=== PATIENT | male | born 1990 ===

== ENCOUNTER 2017-12-06 18:57 | Inpatient (IN) | payer OTHER, MEDICAID ==
--- NOTE | 2017-12-06 19:10 | C.PDOC ---
History Of Present Illness presents to the ED complaining of feeling depressed due to the anniversary of his grandfather an daughter's . 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 Time Seen by Provider: 12/06/17 19:10 Chief Complaint (Nursing): Psychiatric Evaluation History Per: Patient History/Exam Limitations: no limitations Onset/Duration Of Symptoms: Hrs Current Symptoms Are (Timing): Still Present Suicide/Self Injury Attempted (Context): Other (20 Ambien pills (10 mg)) Modifying Factor(s): Other Severity: Moderate Pain Scale Rating Of: 4 Associated Symptoms: Depression Involuntary Hold By: None Recent travel outside of the [place]: No Additional History Per: EMS Past Medical History Reviewed: Historical Data, Nursing Documentation, Vital Signs Vital Signs: Last Vital Signs Temp 98 F 12/06/17 18:58 Pulse 82 12/06/17 18:58 Resp 18 12/06/17 18:58 BP 133/82 12/06/17 18:58 Pulse Ox 98 12/06/17 18:58 - Medical History PMH: No Chronic Diseases Surgical History: No Surg Hx Family History: States: Unknown Family Hx - Social History Hx Alcohol Use: Yes Hx Substance Use: No Review Of Systems Constitutional: Negative for: Fever, Chills Eyes: Negative for: Vision Change ENT: Negative for: Throat Pain Cardiovascular: Negative for: Chest Pain Respiratory: Negative for: Shortness of Breath Gastrointestinal: Negative for: Nausea, Vomiting, Abdominal Pain Genitourinary: Negative for: Dysuria Musculoskeletal: Negative for: Back Pain Skin: Negative for: Rash Neurological: Negative for: Weakness, Confusion Psych: Positive for: Depression Physical Exam - Physical Exam Appears: Non-toxic, No Acute Distress Skin: Warm, Dry Head: Normacephalic Eye(s): bilateral: Normal Inspection, PERRL, EOMI Oral Mucosa: Moist Neck: Trachea Midline, Supple Chest: Symmetrical Cardiovascular: Rhythm Regular Respiratory: No Rales, No Rhonchi, No Wheezing Gastrointestinal/Abdominal: Soft, No Tenderness, No Distention Back: Normal Inspection Extremity: Normal ROM Extremity: Bilateral: Atraumatic Pulses: Left Dorsalis Pedis: Normal, Right Dorsalis Pedis: Normal Neurological/Psych: Oriented x3 Gait: Steady ED Course And Treatment - Laboratory Results Result Diagrams: 12/06/17 19:29 12/06/17 19:29 ECG: Interpreted By Me, Viewed By Me ECG Rhythm: Sinus Rhythm (87), Nonspecific Changes O2 Sat by Pulse Oximetry: 98 (RA) Pulse Ox Interpretation: Normal - Radiology CXR: Interpreted by Me, Viewed By Me CXR Interpretation: No: Infiltrates, Fracture, Pnemothorax Progress Note: 1999--Poison control called and advised observation. Disposition Discussed With : Carrillo Carson Comment: accepteed the pt on his service and took over the care at 9:57 PM Doctor Will See Patient In The: Hospital Counseled Patient/Family Regarding: Studies Performed, Diagnosis - Disposition Disposition: HOSPITALIZED Disposition Time: 19:10 Condition: FAIR Forms: [employer] (Romansh) - POA Present On Arrival: None - Clinical Impression Clinical Impression: Overdose, Major depression - Scribe Statement The provider has reviewed the documentation as recorded by the Scribe (Josi Pepper) Provider Attestation: All medical record entries made by the Scribe were at my direction and personally dictated by me. I have reviewed the chart and agree that the record accurately reflects my personal performance of the history, physical exam, medical decision making, and the department course for this patient. I have also personally directed, reviewed, and agree with the discharge instructions and disposition. Decision To Admit - Pt Status Changed To: Hospital Disposition Of: Observation - . Bed Request Type: Telemetry Admitting Physician: Carrillo Carson Patient Diagnosis: Overdose, Major depression
[2017-12-06 19:29] LABS: SQUAMOUS EPITHIAL < 1 /hpf (0-5); URINE BILIRUBIN NEGATIVE (NEGATIVE); URINE BLOOD NEGATIVE (NEGATIVE); URINE CLARITY Clear (Clear); URINE COLOR Yellow (YELLOW); URINE GLUCOSE (UA) NORMAL (Normal); URINE LEUKOCYTE ESTERASE NEG Leu/uL (Negative); URINE PROTEIN NEGATIVE (NEGATIVE); URINE UROBILINOGEN NORMAL mg/dL (0.2-1.0)
[2017-12-06 19:32] LABS: BASO % 0.4 % (0.0-2.0); EOS # 0.5 K/uL (0.0-0.7); EOS % 5.5 % (0.0-4.0); HEMOGLOBIN 16.9 g/dL (12.0-18.0); LYMPH % 21.7 % (20.0-40.0); MEAN CELL VOLUME 91.1 fL (80.0-94.0); MEAN CORPUSCULAR HEMOGLOBIN 31.9 pg (27.0-31.0); MEAN CORPUSCULAR HGB CONC 34.9 g/dL (33.0-37.0); MEAN PLATELET VOLUME 10.2 fL (7.2-11.7); MONO # 0.7 K/uL (0.0-0.8); MONO % 7.4 % (0.0-10.0); NEUT # 5.8 K/uL (1.8-7.0); RBC 5.32 Mil/uL (4.40-5.90); RED CELL DISTRIBUTION WIDTH 12.7 % (11.5-14.5)
[2017-12-06 19:45] LABS: ALB/GLOB RATIO 1.4 (1.0-2.1); ALBUMIN 4.5 g/dL (3.5-5.0); ALT/SGPT 49 U/L (21-72); AST/SGOT 33 U/L (17-59); BLOOD UREA NITROGEN 16 mg/dL (9-20); GFR NON-AFRICAN AMERICAN > 60
[2017-12-06 19:48] LABS: CALCIUM 9.6 mg/dl (8.6-10.4)
[2017-12-06 19:55] LABS: ACETAMINOPHEN < 10.0 ug/mL (10.0-30.0); SALICYLATE < 1.0 [, mg/dL 1]
[2017-12-06 20:07] LABS: BARBITURATES, UR NEGATIVE (NEGATIVE); BENZODIAZEPINES, UR NEGATIVE (NEGATIVE); OPIATES, UR NEGATIVE (NEGATIVE); PHENCYCLIDINE, UR NEGATIVE (NEGATIVE)
--- NOTE | 2017-12-06 21:31 | RAD ---
Date of service: 12/06/2017 HISTORY: Overdose COMPARISON: No prior. FINDINGS: LUNGS: Mild venous congestion. Mild bibasilar airspace opacities. Small nodular density at the left lung base may represent prominent vessel on end and or small nodule and or granuloma. Correlation with lateral view may be helpful. Interval follow-up study may be helpful in a 3 month interval. PLEURA: No significant pleural effusion identified, no pneumothorax apparent. CARDIOVASCULAR: No atherosclerotic calcification present Normal. OSSEOUS STRUCTURES: No significant abnormalities. VISUALIZED UPPER ABDOMEN: Normal. OTHER FINDINGS: None. IMPRESSION: Mild venous congestion. Mild bibasilar airspace opacities. Small nodular density at the left lung base may represent prominent vessel on end and or small nodule and or granuloma. Correlation with lateral view may be helpful. Interval follow-up study may be helpful in a 3 month interval.
[2017-12-06] MEDS: Dextrose 5%/0.45% NS 1,000 ML IV SCH (22:56)
[2017-12-06] MEDS ORDERED: Dextrose 5%/0.45% NS 1,000 ML IV ONE (22:58)
[2017-12-07] MEDS: Dextrose 5%/0.45% NS 1,000 ML IV SCH ×2 (09:45→17:21)
[2017-12-07 17:30] LABS: HEMOGLOBIN 16.4 g/dL (12.0-18.0); MEAN CELL VOLUME 92.1 fL (80.0-94.0); MEAN CORPUSCULAR HEMOGLOBIN 32.4 pg (27.0-31.0); MEAN CORPUSCULAR HGB CONC 35.2 g/dL (33.0-37.0); MEAN PLATELET VOLUME 10.7 fL (7.2-11.7); RBC 5.07 Mil/uL (4.40-5.90); RED CELL DISTRIBUTION WIDTH 12.8 % (11.5-14.5)
[2017-12-07 17:41] LABS: ALB/GLOB RATIO 1.4 (1.0-2.1); ALBUMIN 4.1 g/dL (3.5-5.0); ALT/SGPT 52 U/L (21-72); AST/SGOT 36 U/L (17-59); BLOOD UREA NITROGEN 16 mg/dL (9-20); CALCIUM 9.5 mg/dl (8.6-10.4); GFR NON-AFRICAN AMERICAN > 60
--- NOTE | 2017-12-07 21:42 | CP.PCM.HP ---
Present on Admission - Present on Admission Any Indicators Present on Admission: No Past Patient History - Past Social History Smoking Status: Never Smoked - CARDIAC Hx Cardiac Disorders: No Hx Hypertension: No - PULMONARY Hx Tuberculosis: No - NEUROLOGICAL HX Cerebrovascular Accident: No Hx Seizures: No - HEMATOLOGICAL/ONCOLOGICAL Hx Cancer: No Hx Human Immunodeficiency Virus (HIV): No - GENITOURINARY/GYNECOLOGICAL Hx Sexually Transmitted Disorders: No - PSYCHIATRIC Hx Substance Use: No - SURGICAL HISTORY Hx Surgeries: No - ANESTHESIA Hx Anesthesia: No Meds Home Medications: Home Medication List Medication Instructions Recorded Confirmed Type RX: QUEtiapine [Seroquel] 100 mg PO HS #30 tab 12/15/17 Rx RX: Venlafaxine [Effexor XR] 150 mg PO DAILY #30 cer 12/15/17 Rx Allergies/Adverse Reactions: Allergies Allergy/AdvReac Type Severity Reaction Status Date / Time No Known Allergies Allergy Unverified 12/06/17 19:05 Results - Vital Signs Recent Vital Signs: Last Vital Signs Temp 98 F 12/07/17 14:00 Pulse 61 12/07/17 15:30 Resp 20 12/07/17 14:00 BP 111/67 12/07/17 14:00 Pulse Ox 96 12/07/17 14:00 - Labs Result Diagrams: 12/07/17 17:22 12/07/17 17:22 Labs: Laboratory Results - last 24 hr 12/07/17 12/07/17 17:22 17:22 WBC 7.0 RBC 5.07 Hgb 16.4 Hct 46.7 MCV 92.1 MCH 32.4 H MCHC 35.2 RDW 12.8 Plt Count 173 MPV 10.7 Sodium 143 Potassium 3.9 Chloride 106 Carbon Dioxide 26 Anion Gap 15 BUN 16 Creatinine 0.9 Est GFR ( Amer) > 60 Est GFR (Non-Af Amer) > 60 Random Glucose 87 Calcium 9.5 Total Bilirubin 1.8 H AST 36 ALT 52 Alkaline Phosphatase 58 Total Protein 7.0 Albumin 4.1 Globulin 2.9 Albumin/Globulin Ratio 1.4
[2017-12-08] MEDS: Dextrose 5%/0.45% NS 1,000 ML IV SCH ×2 (09:28→22:02)
--- NOTE | 2017-12-08 23:55 | CP.PCM.PN ---
Subjective - Date & Time of Evaluation Date of Evaluation: 12/08/17 Time of Evaluation: 09:10 - Subjective Subjective: dictated Objective - Vital Signs/Intake and Output Vital Signs (last 24 hours): Temp Pulse Resp BP Pulse Ox 97.5 F L 55 L 20 107/65 97 12/08/17 15:00 12/08/17 16:00 12/08/17 15:00 12/08/17 15:00 12/08/17 15:00 Intake and Output: 12/08/17 12/09/17 18:59 06:59 Intake Total 1250 Balance 1250 - Medications Medications: Current Medications Dextrose/Sodium Chloride (Dextrose 5%/0.45% Ns 1000 Ml) 1,000 mls @ 100 mls/hr IV .Q10H ANNETTE Last Admin: 12/08/17 22:02 Dose: 100 mls/hr - Labs Labs: 12/07/17 17:22 12/07/17 17:22
--- NOTE | 2017-12-09 07:49 | PN ---
DATE: 12/08/2017 SUBJECTIVE: The patient, Lawrence Hart, feels better. He is more alert. Afebrile. No nausea, vomiting. He is on one-to-one watch. PHYSICAL EXAMINATION: VITAL SIGNS: Blood pressure 110/65, pulse 70, respiratory rate 20, temperature 97.5. LUNGS: Clear. CVS: S1, S2 regular. ABDOMEN: Soft. ASSESSMENT: 1. Drug overdose. 2. Suicidal attempt. PLAN: Continue current medication. Monitor the patient. Carrillo Carson MD
[2017-12-09] MEDS: Dextrose 5%/0.45% NS 1,000 ML IV SCH (10:28)
--- NOTE | 2017-12-09 11:13 | PCM.PSYCH ---
Initial Psychiatric Evaluation - Initial Psychiatric Evaluation Type of Admission: Voluntary Legal Status: Capacity Chief Complaint (in patient's own words): I just wanted to sleep.' History of Present Illness and Precipitating Events: Pt is a 27 years old HM, with previous psychiatric history of major depression was admitted to the medical floor as pt overdosed on 10 pills of ambien. Psychiatry was consulted today. Pt reports past history of more than 1 inpatient psychiatric hospitalizations, he was last discharged 4 years ago. He reports non compliance with the follow up treatments. Patient reports that he overdosed following an argument with his regarding marital issues that they have been having. The patient does not remember what type of pills he took but states that he took about 10 pills after they finished arguing and he did not know what he was doing at the time. Pt at time of contact appeared somewhat delusional and paranoid. He was smiling inappropriately. Pt remained internally preoccupied. Patient reports of depressed mood, at times feelings of hopelessness and helplessness, poor sleep and poor appetite. He denies any auditory or visual hallucinations or any psychotic symptoms. Past psychiatic history: Pt reports h/o psychiatric hospitalization 4yr ago, for suicide attempt due to hearing voices telling him to kill himself after his unborn daughter's Social history: Patient lives with his who is his immediate contact (phone#: [phone]) and not working. They have no children. Patient states he used to use marijuana but stopped 2 years ago Past medical: No previous medical history Allergies: no known allergies Current Medications: Active Medications Generic Name Dose Route Start Last Admin Trade Name Freq PRN Reason Stop Dose Admin Dextrose/Sodium Chloride 1,000 mls @ 100 mls/hr 12/06/17 22:00 12/09/17 10:28 Dextrose 5%/0.45% Ns 1000 Ml IV 100 mls/hr .Q10H ANNETTE Administration Past Psychiatric History - Past Psychiatric History Previous Treatment History: Inpatient Pertinent Medical Hx (Current Medical&Sleep Prob, Allergies): Allergies Allergy/AdvReac Type Severity Reaction Status Date / Time No Known Allergies Allergy Unverified 12/06/17 19:05 No Known Home Med 12/06/17 Review of Systems - Review of Systems All systems: reviewed and no additional remarkable complaints except - Psychiatric Psychiatric: Anxiety, Irritability, Paranoia, Suicidal Ideation Mental Status Examination - Personal Presentation Personal Presentation: Looks stated age - Affect Affect: Constricted, Depressed - Motor Activity Motor Activity: Calm - Reliability in Providing Information Reliability in Providing Information: Fair - Speech Speech: Organized - Mood Mood: Depressed, Anxious - Formal Thought Process Formal Thought Process: Delusions, Paranoia, Loosening of associations - Obsessions/Compulsions Obsessions: No Compulsions: No - Cognitive Functions Orientation: Person, Place, Situation, Time Sensorium: Alert Attention/Concentration: Attentive Abstract Thinking: [place] Estimate of Intelligence: Below average Judgement: Imparied, as evidence by: Poor judgement, Imparied, as evidence by: Lack of insight into illness - Risk Risk: Suicidal, Diminished functioning - Limitations Limitations: Living alone DSM 5 DX - DSM 5 DSM 5 Diagnosis: Major depressive disorder recurrent severe with psychotic features R/O Schizoaffective disorder depressive type - Recommended/Plan of Treatment Treatment Recommendations and Plan of Treatment: Major depressive disorder recurrent severe with psychotic features R/O Schizoaffective disorder depressive type -psychotherapy -supportive therapy, group therapy, individual therapy -Atarax 25 mg PO Q6 prn -Trazodone 100 mg PO QHS prn Pt to transfer to the psych after medical clearance.
--- NOTE | 2017-12-09 14:08 | CP.PCM.PN ---
Subjective - Date & Time of Evaluation Date of Evaluation: 12/09/17 Time of Evaluation: 14:05 - Subjective Subjective: PT SEEN BY PSYCH, DR. JIMENEZ, THIS AFTERNOON AND HAS BEEN ACCEPTED TO GO TO PSYCH FOR ADMISSION UNDER DR. JIMENEZ. PER DR. DURAN PT IS MEDICALLY STABLE AND CLEARED FOR TRANSFER TO PSYCH FLOOR FOR FURTHER TREATMENT AND ADMISSION. PRIMAR Y RN LORENZO AWARE AND WILL ENSURE PT IS TRANSFERRED. NO FURTHER ORDERS. Objective - Vital Signs/Intake and Output Vital Signs (last 24 hours): Temp Pulse Resp BP Pulse Ox 98.1 F 59 L 20 104/65 97 12/09/17 13:10 12/09/17 13:10 12/09/17 13:10 12/09/17 13:10 12/09/17 07:00 Intake and Output: 12/09/17 12/09/17 06:59 18:59 Intake Total 2019 Balance 2019 - Medications Medications: Current Medications Dextrose/Sodium Chloride (Dextrose 5%/0.45% Ns 1000 Ml) 1,000 mls @ 100 mls/hr IV .Q10H ANNETTE Last Admin: 12/09/17 10:28 Dose: 100 mls/hr - Labs Labs: 12/07/17 17:22 12/07/17 17:22
--- NOTE | 2017-12-09 17:33 | PCM.BM ---
<Janel Dian - Last Filed: 12/09/17 17:30> Treatment Plan Problems - Problems identified on initial assessmt Depression Date Initiated: 12/09/17 Time Initiated: 17:30 Assessment reference: NA Status: Active Suicidal Ideation Date Initiated: 12/09/17 Time Initiated: 17:30 Assessment reference: NA Status: Monitor Treatment assets and liabiliti Patient Assests: cooperative, ADL independent, physically healthy, cognitively intact Patient Liabilities: poor support system - Milieu Protocol Maintain good personal hygiene: daily Encourage regular showers, daily Remind patient to perform daily oral care, daily Assist patient to perform ADL's Conduct patient checks and document Observation sheet: Q15 minutes Maintain personal safety: every shift Educate patient to report safety concerns to staff, every shift Monitor environment for contraband/sharps Medication safety: Monitor for expected outcome, potential side effects: every shift, Assess barriers to learning: every shift, Assess readiness for medication education: every shift <Yemi Pedro - Last Filed: 12/10/17 11:39> - Diagnosis (1) Major depressive disorder with psychotic features Status: Acute Interventions: 12/10/17 11:39 * Assess/adjust medications daily and /or as needed * See patient on an individual basis 7x/week to assess symptoms of depression * Monitor for side effects & effectiveness of medications * <Audra Bowman - Last Filed: 12/10/17 13:45> Family Contact Family involvement: Family/SO is involved Family contact: Patient agrees to contact Family contact name: Shonna Block-girlfriend Family contacted how many times per week?: 1 - Goals for Treatment Patient goals for treatment: "I need a psychiatrist for outpatient treatment." Discharge/Continuing Care - Education Needs Education Needs: Patient Medication, Patient Coping Skills - Discharge Discharge Criteria: Tolerates medication w/o severe side effects, Free of Suicidal thoughts, Reduction of target symptoms Discharge to:: Home, With Family - Treatment Team Participation Discussed with Family/SO: No Was Patient/Family/SO present at Treatment Team Meeting: Yes
--- NOTE | 2017-12-09 19:31 | CARD ---
APPROVED REPORT Date of service: 12/06/2017 EKG Measurement Heart [id number] <Conclusion> Normal sinus rhythm Normal ECG
--- NOTE | 2017-12-11 01:13 | PCM.PYCHPN ---
Psychiatric Progress Note - Psychiatric Progress Note Patient seen today, length of contact: 15 min Patient Chief Complaint: I am feeling little better.' Problems Identified/Issues Discussed: Patient seen and evaluated, chart reviewed and discussed with the nurse. Pt reports depressed mood, and reports feelings of hopelessness and helplessness. Pt remained disorganized and internally preoccupied. He remained isolated and withdrawn, and confined to his room. He denies any auditory hallucinations, visual hallucinations, or any paranoia. Patient is compliant with medications and denies any side effects. Symptoms are improving but pt needs more time to stabilize. Support and psychoeducation given. Medication Change: Yes Medical Record Reviewed: Yes Mental Status Examination - Cognitive Function Orientation: Person, Place, Situation, Time Memory: Intact Attention: WNL Concentration: Poor Association: Loose Fund of Knowledge: Poor - Mood Mood: Depressed, Anxious - Affect Affect: Constricted, Depressed - Speech Speech: Soft - Formal Thought Process Formal Thought Process: Delusions, Paranoia, Loosening of associations - Suicidal Ideation Suicidal Ideation: No - Homicidal Ideation Homicidal Ideation: No Goal/Treatment Plan - Goal/Treatment Plan Need for Continued Stay: Discharge may exacerbated symptoms, Severe functional impairment Progress Toward Problem(s) and Goals/Treatment Plan: Major depressive disorder recurrent severe with psychotic features R/O Schizoaffective disorder depressive type -psychotherapy -supportive therapy, group therapy, individual therapy -Atarax 25 mg PO Q6 prn -Seroquel 100 mg PO QHS prn -Effexor 75 mg PO Daily -Neurotnin 300 mg PO TID
--- NOTE | 2017-12-12 06:23 | PCM.PYCHPN ---
Psychiatric Progress Note - Psychiatric Progress Note Patient seen today, length of contact: 15 min Patient Chief Complaint: I am feeling little better.' Problems Identified/Issues Discussed: Patient seen and evaluated, chart reviewed and discussed with the nurse. Pt reports some improvement in his depressed mood, and reports some improvement in the feelings of hopelessness and helplessness. He remained isolated and withdrawn, and confined to his room. He denies any auditory hallucinations, visual hallucinations, or any paranoia. Patient is compliant with medications and denies any side effects. Symptoms are improving but pt needs more time to stabilize. Support and psychoeducation given. Medication Change: Yes Medical Record Reviewed: Yes Mental Status Examination - Cognitive Function Orientation: Person, Place, Situation, Time Memory: Intact Attention: WNL Concentration: WNL Association: WNL Fund of Knowledge: Poor - Mood Mood: Depressed, Anxious - Affect Affect: Constricted, Depressed - Speech Speech: Soft - Formal Thought Process Formal Thought Process: Loosening of associations - Suicidal Ideation Suicidal Ideation: No - Homicidal Ideation Homicidal Ideation: No Goal/Treatment Plan - Goal/Treatment Plan Need for Continued Stay: Discharge may exacerbated symptoms, Severe functional impairment Progress Toward Problem(s) and Goals/Treatment Plan: Major depressive disorder recurrent severe with psychotic features R/O Schizoaffective disorder depressive type -psychotherapy -supportive therapy, group therapy, individual therapy -Atarax 25 mg PO Q6 prn -Seroquel 100 mg PO QHS prn -Effexor 75 mg PO Daily -Neurotnin 300 mg PO TID - Smoking Cessation Smoking Cessation Initiated: No
--- NOTE | 2017-12-12 10:58 | PCM.PYCHPN ---
Psychiatric Progress Note - Psychiatric Progress Note Patient seen today, length of contact: 15 min Patient Chief Complaint: I am feeling little better.' Problems Identified/Issues Discussed: Patient seen and evaluated, chart reviewed and discussed with the nurse. Per staff pt is improving and he is getting better. Pt reports some improvement in his depressed mood, and reports some improvement in the feelings of hopelessness and helplessness. He remained isolated and withdrawn, and confined to his room. He denies any auditory hallucinations, visual hallucinations, or any paranoia. Patient is compliant with medications and denies any side effects. Symptoms are improving but pt needs more time to stabilize. Support and psychoeducation given. Medication Change: Yes Medical Record Reviewed: Yes Mental Status Examination - Cognitive Function Orientation: Person, Place, Situation, Time Memory: Intact Attention: WNL Concentration: WNL Association: WNL Fund of Knowledge: Poor - Mood Mood: Depressed, Anxious - Affect Affect: Constricted, Depressed - Speech Speech: Soft - Formal Thought Process Formal Thought Process: No Impairment - Suicidal Ideation Suicidal Ideation: No - Homicidal Ideation Homicidal Ideation: No Goal/Treatment Plan - Goal/Treatment Plan Need for Continued Stay: Discharge may exacerbated symptoms, Severe functional impairment Progress Toward Problem(s) and Goals/Treatment Plan: Major depressive disorder recurrent severe with psychotic features R/O Schizoaffective disorder depressive type -psychotherapy -supportive therapy, group therapy, individual therapy -Atarax 25 mg PO Q6 prn -Seroquel 100 mg PO QHS prn -Effexor 150 mg PO Daily -Neurotnin 300 mg PO TID
--- NOTE | 2017-12-13 22:59 | PCM.PYCHPN ---
Psychiatric Progress Note - Psychiatric Progress Note Patient seen today, length of contact: 15 min Patient Chief Complaint: "I can leave tomorrow" Problems Identified/Issues Discussed: The pt is seen, chart reviewed, case discussed with staff. The pt is compliant with medications and reports no side-effects. Symptoms are improving but needs more time to stabilize. After care discussed, support and psychoeducation given. Medication Change: No Medical Record Reviewed: Yes Mental Status Examination - Cognitive Function Orientation: Person, Place, Situation, Time Memory: Intact Attention: WNL Concentration: WNL Association: WNL Fund of Knowledge: Poor - Mood Mood: Depressed, Anxious - Affect Affect: Constricted, Depressed - Speech Speech: Soft - Formal Thought Process Formal Thought Process: No Impairment - Suicidal Ideation Suicidal Ideation: No - Homicidal Ideation Homicidal Ideation: No Goal/Treatment Plan - Goal/Treatment Plan Need for Continued Stay: Discharge may exacerbated symptoms, Severe functional impairment Progress Toward Problem(s) and Goals/Treatment Plan: Continue medications Support and psychoeducation daily Attend groups and activities daily After care planning by KAJAL
[2017-12-14 07:01] VITALS: RESP 20
--- NOTE | 2017-12-14 20:34 | PCM.PYCHPN ---
Psychiatric Progress Note - Psychiatric Progress Note Patient seen today, length of contact: 15 min Patient Chief Complaint: "I am anxious" Problems Identified/Issues Discussed: The pt is seen, chart reviewed, case discussed with staff. Support given, CBT and DE used briefly No new symptoms reported, improving slowly and needs more time No SEs from medications, risks discussed. After care discussed Medication Change: No Medical Record Reviewed: Yes Mental Status Examination - Cognitive Function Orientation: Person, Place, Situation, Time Memory: Intact Attention: WNL Concentration: WNL Association: WNL Fund of Knowledge: Poor - Mood Mood: Depressed, Anxious - Affect Affect: Constricted, Depressed - Speech Speech: Soft - Formal Thought Process Formal Thought Process: No Impairment - Suicidal Ideation Suicidal Ideation: No - Homicidal Ideation Homicidal Ideation: No Goal/Treatment Plan - Goal/Treatment Plan Need for Continued Stay: Discharge may exacerbated symptoms, Severe functional impairment Progress Toward Problem(s) and Goals/Treatment Plan: Continue medications Support and psychoeducation daily Attend groups and activities daily After care planning by KAJAL
[2017-12-15 08:57] VITALS: BP 134/86; PULSE 71; TEMP 98.3; O2SAT 99
--- NOTE | 2017-12-15 10:16 | PCM.PYCHDC ---
Mental Status Examination - Mental Status Examination Orientation: Person, Place, Situation, Time Memory: Intact Mood: Neutral Affect: Constricted Speech: Soft Attention: WNL Concentration: WNL Association: WNL Fund of Knowledge: WNL Formal Thought Process: No Impairment Description of patient's judgement and insight: good, fair Psychotic Thoughts and Behaviors: denies any AVH Suicidal Ideation: No Current Homicidal Ideation?: No Discharge Summary - Discharge Note Reason for Hospitalization: Pt is a 27 years old HM, with previous psychiatric history of major depression was admitted to the medical floor as pt overdosed on 10 pills of ambien. Psychiatry was consulted today. Pt reports past history of more than 1 inpatient psychiatric hospitalizations, he was last discharged 4 years ago. He reports non compliance with the follow up treatments. Patient reports that he overdosed following an argument with his regarding marital issues that they have been having. The patient does not remember what type of pills he took but states that he took about 10 pills after they finished arguing and he did not know what he was doing at the time. Pt at time of contact appeared somewhat delusional and paranoid. He was smiling inappropriately. Pt remained internally preoccupied. Patient reports of depressed mood, at times feelings of hopelessness and helplessness, poor sleep and poor appetite. He denies any auditory or visual hallucinations or any psychotic symptoms. Past psychiatic history: Pt reports h/o psychiatric hospitalization 4yr ago, for suicide attempt due to hearing voices telling him to kill himself after his unborn daughter's Social history: Patient lives with his who is his immediate contact (phone#: [phone]) and not working. They have no children. Patient states he used to use marijuana but stopped 2 years ago Past medical: No previous medical history Allergies: no known allergies Consultations:: List each consultation separately and include: 1. Reason for request. 2. Findings. 3. Follow-up Summary of Hospital Course include:: 1. Description of specific treatment plan utilized for patients during their course of treatmen. 2. Summarize the time- course for resolution of acute symptoms and/or regressed behaviors. 3. Describe issues identified and worked on during hospitalization. 4. Describe medication utilized. 5. Describe medical problems identified and treated. 6. Reassessment of suicide risk Summary of Hospital Course: During the course of his stay, patient (pt) started progressively improving and no longer remained irritable, depressed, and suicidal. His mood and anxiety were improved and he started attending groups and meetings and started socializing. Patient denied any feelings of hopelessness, helplessness, and worthlessness, denied any problem with the sleep or appetite, denied suicidal ideation or homicidal ideation. Pt denied any auditory or visual hallucinations. He denied any withdrawal symptoms. Pt was treated with medications along with supportive therapy, milieu therapy and group therapy. Some changes were made in his current medications and patient was discharged on following medications. He tolerated these medications very well and denied any side effects. - Diagnosis (1) Major depressive disorder with psychotic features Status: Acute - Final Diagnosis (DSM 5) Condition upon Discharge: FAIR DSM 5: Major depressive disorder recurrent severe with psychotic features Disposition: HOME/ ROUTINE Follow-up Treatment Plan: Followup: He was discharged to the [facility]. Education: Pt was educated and counseled about the risks and benefits of taking and not t aking medications. Pt was educated and counseled about the risks of drinking and abusing drugs. Pt was educated and counseled to go to the ER or call 911 if pt develop suicidal ideation or homicidal ideation, worsening of symptoms or severe side effects of the meds. Prescriptions/Medication Reconciliation: QUEtiapine [Seroquel] 100 mg PO HS #30 tab Venlafaxine [Effexor XR] 150 mg PO DAILY #30 cer - Smoking Cessation Smoking Cessation Medication prescribed: No - Antipsychotic Medications Pt discharged on 2 or more routine antipsychotic medications: No
== END 2017-12-15 11:07 | disposition home or self-care (01) | DRG 430 ==
LOC: C.ER 18:57 → C.9E 21:56 → C.6T 22:24 → OBSVTOIN 12-09 14:20 → C.5E 12-09 17:04
PROVIDERS: ADMIT Psychiatry & Neurology Psychiatry; ATTEND Psychiatry & Neurology Psychiatry
PROC: GZ3ZZZZ Medication Management (ICD-10-PCS; principal; 2017-12-09)
PROC: GZHZZZZ Group Psychotherapy (ICD-10-PCS; 2017-12-09)
PROC: GZ56ZZZ Individual Psychotherapy, Supportive (ICD-10-PCS; 2017-12-09)
DX: F33.3 Major depressive disorder, recurrent, severe with psychotic symptoms (principal); F25.1 Schizoaffective disorder, depressive type; T42.6X2A Poisoning by other antiepileptic and sedative-hypnotic drugs, intentional self-harm, initial encounter; Y92.9 Unspecified place or not applicable; Z91.19 Patient's noncompliance with other medical treatment and regimen; Z79.899 Other long term (current) drug therapy

== ENCOUNTER 2018-05-21 14:25 | Emergency (ER) | payer MEDICAID ==
[2018-05-21 14:39] VITALS: BP 142/83; PULSE 102; RESP 18; TEMP 99.4; O2SAT 98
--- NOTE | 2018-05-21 15:56 | C.PDOC ---
History Of Present Illness 28 y/o male presents to the ER complaining of subjective fever, runny nose, sore throat, and body aches which have been present for the past 2 days. Patient denies having rash, cough, neck pain, CP,SOB, nausea, vomiting, abdominal pain, and diarrhea. Time Seen by Provider: 05/21/18 14:32 Chief Complaint (Nursing): Flu-like Symptoms History Per: Patient History/Exam Limitations: no limitations Onset/Duration Of Symptoms: Days Current Symptoms Are (Timing): Still Present Severity: Moderate Past Medical History Reviewed: Historical Data, Nursing Documentation, Vital Signs Vital Signs: Last Vital Signs Temp 99.4 F 05/21/18 14:28 Pulse 102 H 05/21/18 14:28 Resp 18 05/21/18 14:28 BP 142/83 05/21/18 14:28 Pulse Ox 98 05/21/18 14:28 - Medical History PMH: Migraine Denies: Diabetes, Hepatitis, HIV, HTN, Seizures, Sexually Transmitted Disease Other Surgeries: Hx of surgeries - [facility] Procedures GROUP PSYCHOTHERAPY (12/09/17) INDIVIDUAL PSYCHOTHERAPY, SUPPORTIVE (12/09/17) MEDICATION MANAGEMENT (12/09/17) Family History: States: No Known Family Hx - Social History Hx Alcohol Use: Yes Hx Substance Use: Yes - Immunization History Hx Tetanus Toxoid Vaccination: No Hx Influenza Vaccination: No Hx Pneumococcal Vaccination: No Review Of Systems Except As Marked, All Systems Reviewed And Found Negative. Constitutional: Positive for: Fever (subjective fever). Negative for: Chills Cardiovascular: Negative for: Chest Pain Respiratory: Negative for: Shortness of Breath Gastrointestinal: Negative for: Nausea, Vomiting, Abdominal Pain, Diarrhea Musculoskeletal: Negative for: Neck Pain Skin: Negative for: Rash Physical Exam - Physical Exam Appears: Non-toxic, No Acute Distress Skin: Normal Color, Warm, Dry, No Rash Head: Atraumatic, Normacephalic Eye(s): bilateral: Normal Inspection, PERRL, EOMI Ear(s): Bilateral: Normal Nose: Normal Oral Mucosa: Moist Throat: Normal, No Erythema, No Exudate Neck: Normal ROM, Supple Chest: Symmetrical, No Tenderness Cardiovascular: Rhythm Regular, No Friction Rub, No Murmur Respiratory: Normal Breath Sounds, No Rales, No Rhonchi, No Wheezing Gastrointestinal/Abdominal: Bowel Sounds (active), Soft, No Tenderness Back: Normal Inspection, No CVA Tenderness Extremity: Normal ROM, No Tenderness, No Swelling Neurological/Psych: Oriented x3, Normal Speech Gait: Steady ED Course And Treatment O2 Sat by Pulse Oximetry: 98 (RA) Pulse Ox Interpretation: Normal Medical Decision Making Medical Decision Making: Plan: --Flu Swab --Rapid Strep Test --Throat Culture Old records reviewed, no prior complaints for similar visit. Disposition - Disposition Referrals: [facility] [Outside] Disposition: HOME/ ROUTINE Disposition Time: 16:19 Condition: GOOD Additional Instructions: Follow up with the medical doctor within 1-2 days. Return if worsened. Prescriptions: Ibuprofen [Motrin] 600 mg PO TID #21 tab Loratadine [Claritin] 10 mg PO DAILY #10 tab predniSONE [Prednisone] 20 mg PO BID #10 tab Instructions: Viral Upper Respiratory Infection, Adult (DC) Forms: [employer] (Slovak) - Clinical Impression Clinical Impression: Upper respiratory disease - PA / LIFE SCIENCE TEACHER / Resident Statement MD/DO has reviewed & agrees with the documentation as recorded. - Scribe Statement The provider has reviewed the documentation as recorded by the Lucia Motley Provider Attestation All medical record entries made by the Marisaibjeb were at my direction and personally dictated by me. I have reviewed the chart and agree that the record accurately reflects my personal performance of the history, physical exam, medical decision making, and the department course for this patient. I have also personally directed, reviewed, and agree with the discharge instructions and disposition.
== END 2018-05-21 16:38 | disposition home or self-care (01) ==
LOC: C.ER 14:25
DX: J39.9 Disease of upper respiratory tract, unspecified (principal)

== ENCOUNTER 2018-06-23 13:21 | Inpatient (IN) | payer MEDICAID ==
[2018-06-23 14:52] LABS: BASO % 0.4 % (0.0-2.0); EOS # 0.3 K/uL (0.0-0.7); EOS % 3.9 % (0.0-4.0); HEMOGLOBIN 16.9 g/dL (12.0-18.0); LYMPH # 1.5 K/uL (1.0-4.3); LYMPH % 22.5 % (20.0-40.0); MEAN CELL VOLUME 93.7 fL (80.0-94.0); MEAN CORPUSCULAR HEMOGLOBIN 32.6 pg (27.0-31.0); MEAN CORPUSCULAR HGB CONC 34.8 g/dL (33.0-37.0); MEAN PLATELET VOLUME 9.5 fL (7.2-11.7); MONO # 0.6 K/uL (0.0-0.8); MONO % 8.6 % (0.0-10.0); NEUT # 4.4 K/uL (1.8-7.0); NEUT % 64.6 % (50.0-75.0); NRBC % 0.1 % (0.0-2.0); RBC 5.19 Mil/uL (4.40-5.90); RED CELL DISTRIBUTION WIDTH 13.4 % (11.5-14.5); WHITE BLOOD COUNT 6.8 K/uL (4.8-10.8)
[2018-06-23 15:05] LABS: ALB/GLOB RATIO 1.2 (1.0-2.1); ALBUMIN 4.5 g/dL (3.5-5.0); BLOOD UREA NITROGEN 16 mg/dL (9-20); CALCIUM 9.7 mg/dl (8.6-10.4); GFR NON-AFRICAN AMERICAN > 60
[2018-06-23 15:07] LABS: ALT/SGPT 26 U/L (21-72); AST/SGOT 29 U/L (17-59)
[2018-06-23 15:28] LABS: SQUAMOUS EPITHIAL 1 /hpf (0-5)
[2018-06-23 15:29] LABS: URINE BILIRUBIN NEGATIVE (NEGATIVE); URINE BLOOD NEGATIVE (NEGATIVE); URINE CLARITY Clear (Clear); URINE COLOR Amber (YELLOW); URINE GLUCOSE (UA) NORMAL (Normal); URINE LEUKOCYTE ESTERASE NEG Leu/uL (Negative); URINE PROTEIN NEGATIVE (NEGATIVE)
[2018-06-23 15:35] LABS: BARBITURATES, UR NEGATIVE (NEGATIVE); BENZODIAZEPINES, UR NEGATIVE (NEGATIVE); OPIATES, UR NEGATIVE (NEGATIVE); PHENCYCLIDINE, UR NEGATIVE (NEGATIVE)
--- NOTE | 2018-06-23 17:27 | C.PDOC ---
History Of Present Illness 28 year old male presents to ED for psychiatric evaluation. Patient states that he has been feeling depressed for the past 5 days. He has no physical complaints. Patient denies suicidal ideation and homicidal ideation. Time Seen by Provider: 06/23/18 13:48 Chief Complaint (Nursing): Psychiatric Evaluation History Per: Patient History/Exam Limitations: no limitations Onset/Duration Of Symptoms: Days (5) Current Symptoms Are (Timing): Still Present Suicide/Self Injury Attempted (Context): None Modifying Factor(s): None Associated Symptoms: Depression. denies: Suicidal Thoughts, Suicidal Plan Past Medical History Reviewed: Historical Data, Nursing Documentation, Vital Signs Vital Signs: Last Vital Signs Temp 99.8 F H 06/23/18 14:07 Pulse 71 06/23/18 16:13 Resp 16 06/23/18 16:13 BP 120/83 06/23/18 16:13 Pulse Ox 97 06/23/18 16:13 Primary Care Provider: FAMILY PROVIDER,NO - Medical History PMH: Migraine Denies: Diabetes, Hepatitis, HIV, HTN, Seizures, Sexually Transmitted Disease Surgical History: No Surg Hx - [facility] Procedures GROUP PSYCHOTHERAPY (12/09/17) INDIVIDUAL PSYCHOTHERAPY, SUPPORTIVE (12/09/17) MEDICATION MANAGEMENT (12/09/17) Family History: States: Unknown Family Hx - Social History Hx Alcohol Use: Yes Hx Substance Use: Yes - Immunization History Hx Tetanus Toxoid Vaccination: No Hx Influenza Vaccination: No Hx Pneumococcal Vaccination: No Review Of Systems Constitutional: Negative for: Fever, Chills, Weakness Psych: Positive for: Depression. Negative for: Suicidal ideation, Other (h omicidal ideation) Physical Exam - Physical Exam Appears: Well, Non-toxic, No Acute Distress, Other (pleasant male) Skin: Normal Color, Warm, Dry Head: Atraumatic, Normacephalic Neck: Normal ROM, Supple Chest: Symmetrical, No Deformity Respiratory: No Accessory Muscle Use Extremity: Bilateral: Atraumatic, Normal Color And Temperature, Normal ROM Neurological/Psych: Oriented x3, Normal Speech, Normal Cognition, Other (calm, cooperative) ED Course And Treatment - Laboratory Results Result Diagrams: 06/23/18 14:49 06/23/18 14:49 Lab Results: Total Bilirubin 2.3 mg/dL (0.2-1.3) H 06/23/18 14:49 AST 29 U/L (17-59) 06/23/18 14:49 ALT 26 U/L (21-72) 06/23/18 14:49 Alkaline Phosphatase 65 U/L (38-126) 06/23/18 14:49 Total Protein 8.2 g/dL (6.3-8.3) 06/23/18 14:49 Albumin 4.5 g/dL (3.5-5.0) 06/23/18 14:49 Globulin 3.7 gm/dL (2.2-3.9) 06/23/18 14:49 Albumin/Globulin Ratio 1.2 (1.0-2.1) 06/23/18 14:49 Urine Color Courtney (YELLOW) 06/23/18 14:57 Urine Clarity Clear (Clear) 06/23/18 14:57 Urine pH 5.0 (5.0-8.0) 06/23/18 14:57 Ur Specific [place] 1.028 (1.003-1.030) 06/23/18 14:57 Urine Protein Negative mg/dL (NEGATIVE) 06/23/18 14:57 Urine Glucose (UA) Normal mg/dL (Normal) 06/23/18 14:57 Urine Ketones Negative mg/dL (NEGATIVE) 06/23/18 14:57 Urine Blood Negative (NEGATIVE) 06/23/18 14:57 Urine Nitrate Negative (NEGATIVE) 06/23/18 14:57 Urine Bilirubin Negative (NEGATIVE) 06/23/18 14:57 Urine Urobilinogen 4.0 mg/dL (0.2-1.0) 06/23/18 14:57 Ur Leukocyte Esterase Neg Aura/uL (Negative) 06/23/18 14:57 Urine WBC (Auto) 2 /hpf (0-5) 06/23/18 14:57 Urine RBC (Auto) 1 /hpf (0-3) 06/23/18 14:57 Ur Squamous Epith Cells 1 /hpf (0-5) 06/23/18 14:57 Lab Interpretation: Normal (tox/etoh neg) O2 Sat by Pulse Oximetry: 97 (in RA) Pulse Ox Interpretation: Normal Progress Note: Labs ordered with drug screen and UA. Reevaluation Time: 17:50 Reassessment Condition: Unchanged - Physician Consult Information Outcome Of Conversation: [id number]: d/w Crisis, ok to adm to Psych Disposition Doctor Will See Patient In The: Hospital Counseled Patient/Family Regarding: Studies Performed, Diagnosis - Disposition Disposition: HOSPITALIZED Disposition Time: 17:50 Condition: GOOD Forms: [facility] (Frisian) - Clinical Impression Clinical Impression: Depression - Scribe Statement The provider has reviewed the documentation as recorded by the Scribe (Leslie Weaver) All medical record entries made by the Scribe were at my direction and personally dictated by me. I have reviewed the chart and agree that the record accurately reflects my personal performance of the history, physical exam, medical decision making, and the department course for this patient. I have also personally directed, reviewed, and agree with the discharge instructions and disposition.
--- NOTE | 2018-06-23 22:59 | PCM.BM ---
<Omkar Reed - Last Filed: 06/23/18 22:57> Treatment Plan Problems - Problems identified on initial assessmt Suicidal Ideation Date Initiated: 06/23/18 Time Initiated: 19:05 Assessment reference: NA Status: Active Ineffective Coping Date Initiated: 06/23/18 Time Initiated: 19:05 Assessment reference: NA Status: Active Treatment assets and liabiliti Patient Assests: cooperative, ADL independent, physically healthy, cognitively intact Patient Liabilities: financial problems, poor support system, relationship conflicts, substance abuse (Alcohol) - Milieu Protocol Maintain good personal hygiene: daily Encourage regular showers, daily Remind patient to perform daily oral care, every shift Assist patient to perform ADL's Conduct patient checks and document Observation sheet: Q15 minutes Maintain personal safety: every shift Educate patient to report safety concerns to staff, every shift Monitor environment for contraband/sharps Medication safety: Monitor for expected outcome, potential side effects: every shift, Assess barriers to learning: every shift, Assess readiness for medication education: every shift <Yemi Pedro - Last Filed: 06/24/18 11:30> - Diagnosis (1) Major depression Status: Acute Interventions: 06/24/18 11:30 * Assess/adjust medications daily and /or as needed * See patient on an individual basis 7x/week to assess symptoms of depression * Monitor for side effects & effectiveness of medications * <Audra Bowman - Last Filed: 06/24/18 12:58> Family Contact Family involvement: Family/SO is involved Family contact: Patient declines to allow family contact at present - Goals for Treatment Patient goals for treatment: "I need medication." Discharge/Continuing Care - Education Needs Education Needs: Patient Medication, Patient Coping Skills - Discharge Discharge Criteria: Tolerates medication w/o severe side effects, Reduction of target symptoms Discharge to:: Home, With Family - Treatment Team Participation Discussed with Family/SO: No Was Patient/Family/SO present at Treatment Team Meeting: Yes
--- NOTE | 2018-06-24 11:24 | PCM.PSYCH ---
Initial Psychiatric Evaluation - Initial Psychiatric Evaluation Type of Admission: Voluntary Legal Status: Capacity Chief Complaint (in patient's own words): I was hearing voices.' History of Present Illness and Precipitating Events: Patient is a 28 years old male, who is currently unemployed and lives alone, came to the [facility] with depressed mood and suicidal ideation. Patient reports history of few inpatient psychiatric hospitalizations at [facility] and several Psychiatric Facilities in [place]. He reports history of follow-up with [facility]. Patient reports few stressors including employment and family conflicts. He reports that yesterday he became increasingly depressed and started hearing voices to kill himself so he came to the hospital to get help. Patient reports depressed mood, feelings of hopelessness and helplessness. He also reports poor sleep and anhedonia. He reports auditory hallucinations and paranoia. He denies any irritability, agitation and racing thoughts. He denies any drinking or any substance abuse . Past medical history None reported Current Medications: Active Medications Generic Name Dose Route Start Last Admin Trade Name Freq PRN Reason Stop Dose Admin Hydroxyzine HCl 25 mg 06/23/18 21:16 Atarax PO Q6H PRN Anxiety Pneumococcal Polyvalent Vaccine 0.5 ml 06/26/18 10:00 Pneumovax 23 Vaccine IM 06/26/18 10:01 .ONCE ONE Quetiapine Fumarate 100 mg 06/23/18 22:00 06/23/18 21:43 Seroquel PO 100 mg HS ANNETTE Administration Past Psychiatric History - Past Psychiatric History Previous Treatment History: Inpatient Pertinent Medical Hx (Current Medical&Sleep Prob, Allergies): Allergies Allergy/AdvReac Type Severity Reaction Status Date / Time No Known Allergies Allergy Verified 06/23/18 13:35 QUEtiapine [Seroquel] 100 mg PO HS #30 tab 12/15/17 Venlafaxine [Effexor XR] 150 mg PO DAILY #30 cer 12/15/17 Ibuprofen [Motrin] 600 mg PO TID #21 tab 05/21/18 Loratadine [Claritin] 10 mg PO DAILY #10 tab 05/21/18 predniSONE [Prednisone] 20 mg PO BID #10 tab 05/21/18 Review of Systems - Review of Systems All systems: reviewed and no additional remarkable complaints except - Psychiatric Psychiatric: Anxiety, Depression, Hopelessness, Irritability, Suicidal Ideation Mental Status Examination - Personal Presentation Personal Presentation: Looks stated age - Affect Affect: Constricted, Depressed - Motor Activity Motor Activity: Calm - Reliability in Providing Information Reliability in Providing Information: Good - Speech Speech: Organized - Mood Mood: Depressed, Anxious - Formal Thought Process Formal Thought Process: No Impairment - Obsessions/Compulsions Obsessions: No Compulsions: No - Cognitive Functions Orientation: Person, Place, Situation, Time Sensorium: Alert Attention/Concentration: Attentive Abstract Thinking: [place] Estimate of Intelligence: Below average Judgement: Imparied, as evidence by: Poor judgement, Imparied, as evidence by: Lack of insight into illness - Risk Risk: Suicidal, Diminished functioning - Limitations Limitations: Living alone DSM 5 DX - DSM 5 DSM 5 Diagnosis: Major depressive disorder recurrent severe with psychotic features - Recommended/Plan of Treatment Treatment Recommendations and Plan of Treatment: Major depressive disorder recurrent severe with psychotic features CBT Psychoeducation Supportive therapy and group therapy Hydroxyzine for anxiety Seroquel for insomnia Remeron for depression Olanzapine for psychosis - Smoking Cessation Smoking Cessation Initiated: No
[2018-06-25 06:34] VITALS: RESP 20
--- NOTE | 2018-06-25 16:18 | PCM.PYCHPN ---
Psychiatric Progress Note - Psychiatric Progress Note Patient seen today, length of contact: 15 min Patient Chief Complaint: I m still feeling depressed.' Problems Identified/Issues Discussed: Patient was seen and evaluated, chart reviewed and discussed the staff. Patient reports depressed mood and at times feelings of hopelessness and helplessness. Per staff he remained cooperative and redirectable He still appears somewhat paranoid and delusional and reports of hearing voices. He is taking medication but denies any side effects. He needs to stay longer for the stabilization of the symptoms. Supportive therapy was provided. Medication Change: Yes Medical Record Reviewed: Yes Mental Status Examination - Cognitive Function Orientation: Person, Place, Situation, Time Memory: Intact Attention: WNL Concentration: Poor Association: WNL Fund of Knowledge: Poor - Mood Mood: Depressed, Anxious - Affect Affect: Constricted, Depressed - Speech Speech: Soft - Formal Thought Process Formal Thought Process: No Impairment - Suicidal Ideation Suicidal Ideation: No - Homicidal Ideation Homicidal Ideation: No Goal/Treatment Plan - Goal/Treatment Plan Need for Continued Stay: Remain at risks for inpatient hospitalization Progress Toward Problem(s) and Goals/Treatment Plan: Major depressive disorder recurrent severe without psychotic features CBT Psychoeducation Supportive therapy and group therapy Hydroxyzine for anxiety Seroquel for insomnia Remeron for depression
[2018-06-26 06:20] VITALS: TEMP 97.6
[2018-06-26] MEDS ORDERED: Pneumococcal 23-Valent Vaccine IM ONE (10:00)
--- NOTE | 2018-06-26 22:00 | PCM.PYCHPN ---
Psychiatric Progress Note - Psychiatric Progress Note Patient seen today, length of contact: 15 min Patient Chief Complaint: I m still feeling depressed.' Problems Identified/Issues Discussed: Patient was seen and evaluated, chart reviewed and discussed the staff. Per staff he remained cooperative and redirectable Patient reports depressed mood and at times feelings of hopelessness and helplessness. He still appears somewhat paranoid and delusional and reports of hearing voices. He is taking medication but denies any side effects. He needs to stay longer for the stabilization of the symptoms. Supportive therapy was provided. Medication Change: Yes Medical Record Reviewed: Yes Mental Status Examination - Cognitive Function Orientation: Person, Place, Situation, Time Memory: Intact Attention: WNL Concentration: Poor Association: WNL Fund of Knowledge: Poor - Mood Mood: Depressed, Anxious - Affect Affect: Constricted, Depressed - Speech Speech: Soft - Formal Thought Process Formal Thought Process: No Impairment - Suicidal Ideation Suicidal Ideation: No - Homicidal Ideation Homicidal Ideation: No Goal/Treatment Plan - Goal/Treatment Plan Need for Continued Stay: Remain at risks for inpatient hospitalization Progress Toward Problem(s) and Goals/Treatment Plan: Major depressive disorder recurrent severe without psychotic features CBT Psychoeducation Supportive therapy and group therapy Hydroxyzine for anxiety Seroquel for insomnia Remeron for depression Olanzapine for psychosis
--- NOTE | 2018-06-27 12:01 | PCM.PYCHPN ---
Psychiatric Progress Note - Psychiatric Progress Note Patient seen today, length of contact: 15 min Patient Chief Complaint: "Poor sleep" Problems Identified/Issues Discussed: The pt is seen again, chart reviewed, and case is discussed with the team. The pt denies any side-effects from meds. Attends activities and groups, brief individual therapy provided Not ready for discharge due to ongoing symptoms and high relapse risk. After care discussed again. Medication Change: No Medical Record Reviewed: Yes Mental Status Examination - Cognitive Function Orientation: Person, Place, Situation, Time Memory: Intact Attention: WNL Concentration: Poor Association: WNL Fund of Knowledge: Poor - Mood Mood: Depressed, Anxious - Affect Affect: Constricted, Depressed - Speech Speech: Soft - Formal Thought Process Formal Thought Process: No Impairment - Suicidal Ideation Suicidal Ideation: No - Homicidal Ideation Homicidal Ideation: No Goal/Treatment Plan - Goal/Treatment Plan Need for Continued Stay: Severe depression anxiety, Discharge may exacerbated symptoms, Severe functional impairment Progress Toward Problem(s) and Goals/Treatment Plan: Continue medications Support and psychoeducation daily Attend groups and activities daily Individual therapy After care planning by KAJAL and the team
[2018-06-28 07:01] VITALS: O2SAT 96
[2018-06-29 06:44] VITALS: BP 112/72; PULSE 67
--- NOTE | 2018-06-29 10:43 | PCM.PYCHDC ---
Mental Status Examination - Mental Status Examination Orientation: Person, Place, Situation, Time Memory: Intact Mood: Neutral Affect: Constricted Speech: Soft Attention: WNL Concentration: WNL Association: WNL Fund of Knowledge: WNL Formal Thought Process: No Impairment Description of patient's judgement and insight: good, fair Psychotic Thoughts and Behaviors: denies any AVH Suicidal Ideation: No Current Homicidal Ideation?: No Discharge Summary - Discharge Note Reason for Hospitalization: Patient is a 28 years old male, who is currently unemployed and lives alone, came to the [facility] with depressed mood and suicidal ideation. Patient reports history of few inpatient psychiatric hospitalizations at [facility] and several Psychiatric Facilities in [place]. He reports history of follow-up with [facility]. Patient reports few stressors including employment and family conflicts. He reports that yesterday he became increasingly depressed and started hearing voices to kill himself so he came to the hospital to get help. Patient reports depressed mood, feelings of hopelessness and helplessness. He also reports poor sleep and anhedonia. He reports auditory hallucinations and paranoia. He denies any irritability, agitation and racing thoughts. He denies any drinking or any substance abuse . Consultations:: List each consultation separately and include: 1. Reason for request. 2. Findings. 3. Follow-up Summary of Hospital Course include:: 1. Description of specific treatment plan utilized for patients during their course of treatmen. 2. Summarize the time- course for resolution of acute symptoms and/or regressed behaviors. 3. Describe issues identified and worked on during hospitalization. 4. Describe medication utilized. 5. Describe medical problems identified and treated. 6. Reassessment of suicide risk Summary of Hospital Course: Patient is a 28 years old male, who is currently unemployed and lives alone, came to the [facility] with depressed mood and suicidal ideation. Patient reports history of few inpatient psychiatric hospitalizations at [facility] and several Psychiatric Facilities in [place]. He reports history of follow-up with [facility]. Patient reports few stressors including employment and family conflicts. He reports that yesterday he became increasingly depressed and started hearing voices to kill himself so he came to the hospital to get hel p. Patient reports depressed mood, feelings of hopelessness and helplessness. He also reports poor sleep and anhedonia. He reports auditory hallucinations and paranoia. He denies any irritability, agitation and racing thoughts. He denies any drinking or any substance abuse . Past medical history None reported a - Diagnosis (1) Major depression Current Visit: No Status: Acute - Final Diagnosis (DSM 5) Condition upon Discharge: GOOD DSM 5: Major depressive disorder recurrent severe with psychotic features Disposition: HOME/ ROUTINE Follow-up Treatment Plan: Major depressive disorder recurrent severe without psychotic features CBT Psychoeducation Supportive therapy and group therapy Hydroxyzine for anxiety Seroquel for insomnia Remeron for depression Olanzapine for psychosis Prescriptions/Medication Reconciliation: Mirtazapine [Remeron] 30 mg PO HS #30 tab Olanzapine [Zyprexa] 5 mg PO BID #60 tablet QUEtiapine [Seroquel] 100 mg PO HS #30 tab - Smoking Cessation Smoking Cessation Medication prescribed: No - Antipsychotic Medications Pt discharged on 2 or more routine antipsychotic medications: No
== END 2018-06-29 11:24 | disposition home or self-care (01) | DRG 751 ==
LOC: C.ER 13:21 → C.5E 17:51
DX: F33.3 Major depressive disorder, recurrent, severe with psychotic symptoms (principal); R45.851 Suicidal ideations; F41.9 Anxiety disorder, unspecified; G47.00 Insomnia, unspecified; Z63.9 Problem related to primary support group, unspecified